=== PATIENT | female | born 1955 | race Caucasian/White ===

== ENCOUNTER 2019-07-15 07:21 | Outpatient (CLI) | payer BC, SELFPAY ==
[2019-07-15 08:03] LABS: HCT 42.6 % (36.0-46.0); Mean Corp. HGB Concentration 32.9 g/dL (32.0-36.0); Mean Corpuscular Hemoglobin 31.5 pg (27.0-33.0); Mean Corpuscular Volume 95.9 fL (80-95); Mean Platelet Volume 10.3 fL (8.0-11.0); Platelet Count 257 x1000/uL (130-400); RBC 4.44 m/cumm (4.00-5.20)
[2019-07-15 09:16] LABS: ALT 43 U/L (14-59); AST 22 U/L (15-37); Albumin 3.9 g/dL (3.4-5.0); Alkaline Phosphatase 80 U/L (46-116); Anion Gap 6.7 mmol/L (3-11); BUN 16 mg/dL (7-18); CO2 31.3 mmol/L (21.0-32.0); CREATININE 0.61 mg/dL (0.55-1.02); Calcium 9.4 mg/dL (8.5-10.1); Calculated LDL 114 mg/dL; Chloride 105 mmol/L (98-107); Cholesterol 199 mg/dL (50-200); Glucose 110 mg/dL (70-100); HDL Cholesterol 75 mg/dL (40-60); Potassium 4.3 mmol/L (3.5-5.1); Sodium 143 mmol/L (136-145); Total Protein 7.3 g/dL (6.4-8.2); Triglyceride 51 mg/dL (30-150)
[2019-07-15 09:31] LABS: Bilirubin, Total 0.8 mg/dL (0.2-1.0)
== END 2019-07-15 07:41 ==
PROVIDERS: PCP Family Medicine; Visit Provider Family Medicine
DX: Z00.00 Encounter for general adult medical examination without abnormal findings (principal); Z13.220 Encounter for screening for lipoid disorders; E66.9 Obesity, unspecified
CPT/HCPCS: 36415; 80053; 80061; 85027

== ENCOUNTER 2020-06-14 08:46 | Outpatient (REF) | payer BC, SELFPAY ==
[2020-06-14 20:59] LABS: HCT 40.6 % (36.0-46.0); HGB 13.4 g/dL (11.2-15.7); MCH 31.3 pg (27.0-33.0); MCV 94.9 fL (80-95); MPV 11.1 fL (8.0-11.0); Platelet Count 243 10^3/uL (130-400); RBC 4.28 10^6/uL (3.93-5.22); RDW-SD 41.8 fL; WBC 5.28 10^3/uL (4.4-10.8)
[2020-06-14 21:09] LABS: ALT 60 U/L (14-59); AST 31 U/L (15-37); Albumin 4.1 g/dL (3.4-5.0); Alkaline Phosphatase 81 U/L (46-116); Anion Gap 3.6 mmol/L (3-11); BUN 15 mg/dL (7-18); Bilirubin, Total 0.9 mg/dL (0.2-1.0); CO2 31.4 mmol/L (21.0-32.0); CREATININE 0.54 mg/dL (0.55-1.02); Calcium 9.2 mg/dL (8.5-10.1); Calculated LDL 118 mg/dL (<100); Chloride 107 mmol/L (98-107); Cholesterol 208 mg/dL (<200); Glucose 109 mg/dL (74-106); HDL Cholesterol 82 mg/dL (40-60); Potassium 4.8 mmol/L (3.5-5.1); Sodium 142 mmol/L (136-145); Triglyceride 43 mg/dL (<150)
== END 2020-06-14 09:06 ==
LOC: NCHCN 08:46
PROVIDERS: PCP Family Medicine; Visit Provider Family Medicine
DX: Z00.00 Encounter for general adult medical examination without abnormal findings (principal); E66.9 Obesity, unspecified; Z13.220 Encounter for screening for lipoid disorders
CPT/HCPCS: 80053; 80061; 85027

== ENCOUNTER 2021-07-04 16:40 | Outpatient (REF) | payer BC, SELFPAY ==
--- NOTE | 2021-07-04 16:20 | PAPFT_PTH ---
PATIENT: Saray Lan LOC: [facility]#:[id number] AGE/SX: 66/F ROOM: RE07/04/[address]: Chanelle Rocha : 1955 BED: DIS: 07/04/2021 SPEC #: [id number] RECD: 07/05/21 12:35 STATUS: CASSIDY REZacarias #: [id number] SADIE: 07/04/21 16:[address]: Chanelle Rocha DEPT: [facility] Cytology RECD BY: Amara Turner Tissues: 1 - CX/ENDOCX FOR PAP SMEARS Procedures: PAP THIN PREP/[facility] Screening Comments: [id number]
== END 2021-07-04 16:41 | disposition home or self-care (01) ==
LOC: NCHCN 16:40
PROVIDERS: PCP Family Medicine; Visit Provider Family Medicine
DX: Z12.4 Encounter for screening for malignant neoplasm of cervix (principal); Z01.419 Encounter for gynecological examination (general) (routine) without abnormal findings
CPT/HCPCS: 88142

== ENCOUNTER 2022-05-06 16:56 | Outpatient (REF) | payer BC, SELFPAY | END 2022-05-06 16:57 | disposition home or self-care (01) | LOC: NCHCN 16:56 | PROVIDERS: PCP Family Medicine; Visit Provider Family Medicine | DX: R82.998 Other abnormal findings in urine (principal) | CPT/HCPCS: 87077; 87086; 87186 ==

== ENCOUNTER 2023-06-25 14:10 | Outpatient (REF) | payer BC, SELFPAY ==
[2023-06-25 17:36] LABS: ALT 35 U/L (14-59); AST 19 U/L (15-37); Albumin 3.9 g/dL (3.4-5.0); Alkaline Phosphatase 89 U/L (46-116); Anion Gap 5.7 mmol/L (3-11); BUN 18 mg/dL (7-18); Bilirubin, Total 0.8 mg/dL (0.2-1.0); CO2 29.3 mmol/L (21.0-32.0); CREATININE 0.6 mg/dL (0.55-1.02); Calcium 9.6 mg/dL (8.5-10.1); Calculated LDL 117 mg/dL (<100); Chloride 106 mmol/L (98-107); Cholesterol 210 mg/dL (<200); Estimated GFR 98.93 (mL/min/1.73m2); Glucose 121 mg/dL (74-106); HDL Cholesterol 84 mg/dL (40-60); Potassium 4.7 mmol/L (3.5-5.1); Sodium 141 mmol/L (136-145); Total Protein 7.1 g/dL (6.4-8.2); Triglyceride 46 mg/dL (<150)
== END 2023-06-25 14:11 | disposition home or self-care (01) ==
LOC: NCHCN 14:10
PROVIDERS: PCP Family Medicine; Visit Provider Family Medicine
DX: Z00.00 Encounter for general adult medical examination without abnormal findings (principal); R73.03 Prediabetes; E78.89 Other lipoprotein metabolism disorders
CPT/HCPCS: 80053; 80061

== ENCOUNTER 2023-12-22 19:21 | Outpatient (REF) | payer BC, SELFPAY ==
[2023-12-22 21:07] LABS: Hemoglobin A1C 5.9 % (<5.7)
== END 2023-12-22 19:22 | disposition home or self-care (01) ==
LOC: NCHCN 19:21
PROVIDERS: PCP Family Medicine; Visit Provider Family Medicine
DX: R73.03 Prediabetes (principal)
CPT/HCPCS: 83036

== ENCOUNTER 2024-07-14 15:21 | Outpatient (REF) | payer MEDICARE, SELFPAY ==
--- NOTE | 2024-07-14 09:40 | PAPFT_PTH ---
PATIENT: Saray Lan LOC: [facility] U#:[id number] AGE/SX: 69/F ROOM: RE07/14/[address]: Yessi Perry : 1955 BED: DIS: 07/14/2024 SPEC #: [id number] RECD: 07/14/24 17:50 STATUS: CASSIDY REZacarias #: [id number] SADIE: 07/14/24 09:[address]: Yessi Perry DEPT: COUNTS INCLUDE 234 BEDS AT THE [facility] Cytology RECD BY: Shivani Lopez ENTERED: 07/14/24 17:53 SP TYPE: PAPFT OTHR DR: Chanelle Rocha Tissues: 1 - CX/ENDOCX FOR PAP SMEARS Procedures: PAP THIN PREP/[facility] Screening HPV DNA PROBE Comments: [id number] (HPV 16 & 18/45)
== END 2024-07-14 15:22 | disposition home or self-care (01) ==
LOC: NCHCN 15:21
PROVIDERS: PCP Family Medicine; Visit Provider Family Medicine
DX: Z11.51 Encounter for screening for human papillomavirus (HPV) (principal); Z01.419 Encounter for gynecological examination (general) (routine) without abnormal findings; R87.610 Atypical squamous cells of undetermined significance on cytologic smear of cervix (ASC-US)
CPT/HCPCS: 88142; 87624

== ENCOUNTER 2024-10-04 16:12 | Outpatient (REF) | payer MEDICARE, SELFPAY ==
--- NOTE | 2024-10-04 09:45 | SKI_PTH ---
PATIENT: Saray Lan LOC: [facility] U#:[id number] AGE/SX: 69/F ROOM: RE10/04/[address]: Yessi Perry : 1955 BED: DIS: 10/04/2024 SPEC #: [id number] RECD: 10/04/24 17:07 STATUS: CASSIDY REZacarias #: [id number] SADIE: 10/04/24 09:[address]: Yessi Perry DEPT: Surgical Specimen RECD BY: Shivani Lopez ENTERED: 10/04/24 17:08 SP TYPE: KENYA HENNESSY DR: Chanelle Rocha Tissues: 1 - SKIN BIOPSY(SHAVE/PUNCH) Procedures: SKIN LEVEL 4 Comments: [id number]
== END 2024-10-04 16:13 | disposition home or self-care (01) ==
LOC: NCHCN 16:12
PROVIDERS: PCP Family Medicine; Visit Provider Family Medicine
DX: D22.5 Melanocytic nevi of trunk (principal)
CPT/HCPCS: 88305

== ENCOUNTER 2024-11-16 10:55 | Emergency (ER) | payer MEDICARE, SELFPAY ==
[2024-11-16 11:03] VITALS: BP 125/75; PULSE 56; RESP 14; TEMP 36.6; O2SAT 95
--- NOTE | 2024-11-16 11:15 | DI.CT_ITS ---
Exam(s) CT HEAD CERVICAL SPINE WO EXAM: CT HEAD CERVICAL SPINE WO CLINICAL HISTORY: head injury, fell while snowshoeing. TECHNIQUE: Imaging Protocol: Axial computed tomography images with coronal and sagittal reformatted images were created and reviewed COMPARISON: No exams were available for comparison FINDINGS: Head CT Ventricles and Extra axial spaces: Normal in size and morphology for the patient's age. Hemorrhage: None. Cerebral parenchyma: No evidence of mass or acute infarct. Midline shift: None. Brainstem/Cerebellum: Normal. Calvarium: Normal. Visualized Paranasal sinuses/Mastoids: Clear. Soft tissues: Unremarkable. Cervical Spine CT BONES: Vertebral body heights are maintained. Alignment is normal. There is no evidence of acute frac ture. Degenerative disc changes and facet degenerative changes are seen . SOFT TISSUES: No paraspinal hematoma. The airway appears intact. No pneumothorax is seen at the lung apices. Thyroid is noted to be enlarged. No focal nodules are visible. IMPRESSION: Head CT: No acute abnormality. C-spine CT: Degenerative changes, no acute abnormality. Enlarged thyroid. RADIATION DOSE DELIVERED: 1,149.69mGy.cm Total DLP DATA REPOSITORY: All CT scans at this facility are submitted to the National Radiology Data Registry (NRDR) Dose Index Registry (DIR) with the [employer] (ACR). RADIATION OPTIMIZATION: All CT scans at this facility use at least one of these dose optimization te chniques: automated exposure control; mA and/or kV adjustment per patient size (includes targeted exa ms where dose is matched to clinical indication); or iterative reconstruction.
--- NOTE | 2024-11-16 11:15 | DI.RAD_ITS ---
Exam(s) XR WRIST RT COMPLETE EXAM: XR WRIST RT COMPLETE CLINICAL HISTORY: R wrist pain s/p fall w/deformity. TECHNIQUE: 2D digital imaging was performed. Three views. COMPARISON: No exams were available for comparison FINDINGS: BONES: Comminuted intra-articular fracture of the distal radius. There is dorsal displacement is wel l as impaction of fracture fragments. The ulnar styloid is also fractured. Carpal bones appear inta ct. No bony destructive lesion is seen. JOINTS: The carpal bones are normally aligned. SOFT TISSUE: Normal. IMPRESSION: Comminuted intra-articular fracture of the distal radius. Ulnar styloid fracture DATA REPOSITORY: RADIATION DOSE DELIVERED:
--- NOTE | 2024-11-16 11:28 | ED.GENADUL_ITS ---
Discharge Plan Disposition Patient Disposition: Home Discharge Details Clinical Impression: Fracture of right wrist Primary Care Provider: Chanelle Rocha ED Provider: Shanice Mccauley Home Meds and New Rx's Prescriptions: No Action hydrocortisone 2.5 % cream with perineal applicator 1 applic topical QHS Patient Comments: APPLY A SMALL AMOUNT EVERY NIGHT NEEDED Discharge Instructions Additional Instructions: You have an appointment with orthopedics on November 24 at 1:45 PM. They will discuss with you scheduling surgery if appropriate. Please keep your splint clean and dry. I recommend that you cover with a kitchen size garbage bag, then with 3 layers of waterproof medical tape around the opening to prevent water from entering. (you should still avoid getting it wet). Use sling when you are up and about. Elevate above heart level, use Tylenol 650 mg every 6 hours for discomfort. Use this [id number]. Apply ice for 15 to 20 minutes at a time to the outside of your splint to help with swelling and pain. Return to emergency care if you develop new numbness, coolness, color change to your fingers, severe pain to your wrist, arm, or hand, or if you are very worried and need to be rechecked again immediately Referrals: [facility] [Provider Group] HPI General Date/Time Provider Initiated Documentation: 11/16/24 11:09 . HPI Narrative: Saray is a 69 year old female who presents to the emergency department today for evaluation of right wrist pain. She reports that she lost her balance while snowshoeing, falling with her right hand outstretched onto her driveway. She thinks she may have hit her head at that time; has had no loss of consciousness, headache, dizziness, nausea/vomiting, or neck pain. She did feel some left chest wall discomfort like a muscle pain immediately afterward, this has since resolved; no shortness of breath or chest pain. When she got inside she did feel faint, lowered herself onto the ground. Not on anticoagulation. She is right-handed. Past medical history is significant for [] Physical exam remarkable for right wrist deformity. Generalized tenderness to right wrist. Distal pulses intact. 2-second cap refill. Able to wiggle f ingers slightly. No overlying abrasion/laceration/skin tears. No pain with palpation of fingers, elbow, or shoulder. Easy work of breathing, lung sounds clear bilaterally. No ecchymosis, lesions, or chest wall tenderness. Normal heart sounds. No C-spine tenderness with palpation, painless range of motion of neck. Cranial nerves II through XII intact as tested. No raccoon eyes or Genao sign. D/dx includes but is not limited to: Fracture, sprain intracranial hemorrhage, vertebral fracture I independently interpreted the following tests: R wrist xray, comminuted intraarticular distal radial fracture. This was confirmed by radiologist. Head and C-spine CT both reassuring, no acute abnormality. While in the emergency department, Saray received Tylenol for discomfort. A sugar-tong splint applied to right forearm after consultation with JONNY Caro in orthopedics; she tolerated this well. Patient is likely candidate for surgery, recommends follow-up on November 24 for reassessment. He does request a CT for further evaluation prior to Ortho follow-up; this was performed already admitted prior to discharge. Reviewed discharge instructions with patient, including symptomatic management, splint care, and red flags indicating need for return to emergency care Related Data Home Medications ?Medication ?Instructions ?Recorded ?Confirmed hydrocortisone 2.5 % topical cream 1 applic topical QHS 11/16/24 11/16/24 with perineal applicator Allergies Allergy/AdvReac Type Severity Reaction Status Date / Time amoxicillin AdvReac Mild Skin Rash Unverified 11/16/24 11:09 cephradine (From [facility]ose[facility]) AdvReac Mild Skin Rash Unverified 11/16/24 11:09 General Stated Complaint: Orthopedic ENMANUEL: 3 Review of Systems Narrative: See HPI Exam Const General: cooperative, healthy appearing, comfortable, no acute distress and well developed Nutritional Appearance: average body habitus Orientation: alert and oriented x3 [facility] Head: normal to inspection, no palpable skull fracture, normocephalic and atraumatic Ears: hearing grossly normal bilaterally General nose exam: external nose normal Face and sinus: normal facial exam Mouth: oral mucosae normal Neck Neck: normal visual inspection and full ROM Chest Chest: normal inspection of the chest and normal palpation of entire chest wall Resp Effort & Inspection: normal respiratory effort and able to speak in complete sentences Auscultation: clear to auscultation bilaterally Cardio Rate: regular rate Rhythm: regular rhythm Neuro General: patient alert, patient oriented x3, tone normal, moves all extremities and no focal motor deficits Cranial Nerves: CN's II-XI intact bilaterally, PERRL, EOM intact bilaterally, no nystagmus and facial strength normal Cognition: normal cognition Motor: muscle tone normal throughout Sensory Exam: no sensory deficits noted Extrem Right upper extremity: wrist Details: tenderness, warmth, deformity (distal radius), radial pulse present and ulnar pulse present; no abrasions, no lacerations, no ecchymosis, no foreign body and no penetrating wound Course Vital Signs Vital signs: Vital Signs Temperature 36.6 C 11/16/24 11:03 Pulse 56 L 11/16/24 11:03 Respiratory Rate 14 11/16/24 11:03 Blood Pressure 125/75 11/16/24 11:03 Pulse Oximetry 95 11/16/24 11:03 Temperature 36.6 C 11/16/24 11:03 Temperature Source Oral 11/16/24 11:03 Pulse 56 L 11/16/24 11:03 Respiratory Rate 14 11/16/24 11:03 Respiratory Effort Normal, Non-Labored 11/16/24 11:23 Respiratory Depth Normal 11/16/24 11:23 Respiratory Pattern Normal 11/16/24 11:23 Blood Pressure 125/75 11/16/24 11:03 Blood Pressure Position Sitting 11/16/24 11:03 Pulse Oximetry 95 11/16/24 11:03 Oxygen Delivery Method Room Air 11/16/24 11:03 Oxygen Flow Rate 0 11/16/24 11:03 Pain Level 7 11/16/24 11:21 Medical Decision Making Imaging Data Radiologic Study: Radiologist's impression: Exam(s) CT HEAD CERVICAL SPINE WO EXAM: CT HEAD CERVICAL SPINE WO CLINICAL HISTORY: head injury, fell while snowshoeing. TECHNIQUE: Imaging Protocol: Axial computed tomography images with coronal and sagittal reformatted images were created and reviewed COMPARISON: No exams were available for comparison FINDINGS: Head CT Ventricles and Extra axial spaces: Normal in size and morphology for the patient's age. Hemorrhage: None. Cerebral parenchyma: No evidence of mass or acute infarct. Midline shift: None. Brainstem/Cerebellum: Normal. Calvarium: Normal. Visualized Paranasal sinuses/Mastoids: Clear. Soft tissues: Unremarkable. Cervical Spine CT BONES: Vertebral body heights are maintained. Alignment is normal. There is no evidence of acute fracture. Degenerative disc changes and facet degenerative changes are seen . SOFT TISSUES: No paraspinal hematoma. The airway appears intact. No pneumothorax is seen at the lung apices. Thyroid is noted to be enlarged. No focal nodules are visible. IMPRESSION: Head CT: No acute abnormality. C-spine CT: Degenerative changes, no acute abnormality. Enlarged thyroid. Radiologic Study #2: Radiologist's impression: Exam(s) XR WRIST RT COMPLETE EXAM: XR WRIST RT COMPLETE CLINICAL HISTORY: R wrist pain s/p fall w/deformity. TECHNIQUE: 2D digital imaging was performed. Three views. COMPARISON: No exams were available for comparison FINDINGS: BONES: Comminuted intra-articular fracture of the distal radius. There is dorsal displacement is well as impaction of fracture fragments. The ulnar styloid is also fractured. Carpal bones appear intact. No bony destructive lesion is seen. JOINTS: The carpal bones are normally aligned. SOFT TISSUE: Normal. IMPRESSION: Comminuted intra-articular fracture of the distal radius. Ulnar styloid fracture Quality:SDOH Health Related Social Needs: No Data to Display PFSH All Active Problems (Updated 11/16/24 @ 14:10 by Shanice Feng) Fracture of right wrist (Acute) Social History Smoking/Tobacco Use Status: Never Smoking risk assessment performed?: Yes Alcohol Intake: current Alcohol Intake frequency: a few times a week Drug use: Never Substance use type: does not use Do you feel safe at home: Yes Do you feel safe in your relationship?: Yes PAWSS Have you Been Recently Intoxicated or Drunk Within the Last 30 days?: No Have you Ever Experienced Previous Episodes of Alcohol Withdrawal?: No Have you ever Experienced Withdrawal Seizures?: No Have you ever Experienced Delirium Tremens(DT)s?: No Have you ever undergone Alcohol Rehabilitation Treatment (i.e, inpt ot outpatient treatment programs)?: No Have you ever Experienced Blackouts?: No Have you ever Combined Alcohol with other Downers within the last 90 days?: No Have you ever Combined Alcohol with any other Substance of Abuse during the last 90 days?: No Positive Blood Alcohol level on Presentation? [PCS.BAL]: No Evidence of Increased Autonomic Activity (i.e. HR>120, tremor, sweating, agitation, nausea)?: No Result: 0
[2024-11-16] MEDS: Acetaminophen 325 MG TAB 650 MG PO (11:36)
[2024-11-16 11:49] VITALS: BP 130/64; PULSE 57; O2SAT 97
[2024-11-16 13:23] VITALS: BP 151/75; PULSE 63; RESP 18; O2SAT 97
--- NOTE | 2024-11-16 13:30 | DI.CT_ITS ---
Exam(s) CT UPPER EXTREMITY RT WO EXAM: CT UPPER EXTREMITY RT WO CLINICAL HISTORY: Evaluation of intra-articular radius fracture TECHNIQUE: Imaging Protocol: Axial computed tomography images with coronal and sagittal reformatted images were created and reviewed. CONTRAST MATERIAL: Noncontrast- COMPARISON: CR XR WRIST RT COMPLETE from 11/16/2024 FINDINGS: Bones: There is a there is a comminuted intra-articular fracture of the distal radius. There is impa ction and some anterior and posterior displacement of fracture fragments but no significant angulatio n. There is separation at the articular surface of 5 millimeters. The fracture lines extend from th e radial styloid to the medial aspect of the distal radius. The ulnar styloid is fractured and mildl y comminuted and displaced. There is additional small fracture fragment seen at the posterior aspect of the triquetrum. The carpal bones are normally aligned. No cellulitic or osteomyelitic changes are identified. There is no evidence of joint space narrowing or cystic degeneration seen. No lytic or sclerotic lesions are identified. Soft Tissues: A splint is in place. Soft tissue swelling is present at the level of the wrist. IMPRESSION: Comminuted intra-articular fracture of the distal radius with impaction. Ulnar styloid fracture. Sm all fracture fragment at the posterior aspect of the triquetrum. RADIATION DOSE DELIVERED: 65.65mGy.cm Total DLP DATA REPOSITORY: All CT scans at this facility are submitted to the National Radiology Data Registry (NRDR) Dose Index Registry (DIR) with the [employer] (ACR). RADIATION OPTIMIZATION: All CT scans at this facility use at least one of these dose optimization te chniques: automated exposure control; mA and/or kV adjustment per patient size (includes targeted exa ms where dose is matched to clinical indication); or iterative reconstruction.
== END 2024-11-16 14:39 | disposition home or self-care (01) ==
PROVIDERS: Emergency Provider Nurse Practitioner Family; PCP Family Medicine
DX: S52.571A Other intraarticular fracture of lower end of right radius, initial encounter for closed fracture (principal); S52.611A Displaced fracture of right ulna styloid process, initial encounter for closed fracture; W00.0XXA Fall on same level due to ice and snow, initial encounter; Y92.39 Other specified sports and athletic area as the place of occurrence of the external cause; Y92.014 Private driveway to single-family (private) house as the place of occurrence of the external cause
CPT/HCPCS: 29125; 99284; 70450; 72125; 73110; 73200

== ENCOUNTER 2025-07-18 13:37 | Outpatient (REF) | payer MEDICARE, SELFPAY ==
[2025-07-18 14:57] LABS: Hemoglobin A1C 5.8 % (<5.7)
[2025-07-18 15:20] LABS: Anion Gap 6.6 mmol/L (3-11); BUN 14 mg/dL (7-18); CO2 30.4 mmol/L (21.0-32.0); Calcium 9.3 mg/dL (8.5-10.1); Calculated LDL 109 mg/dL (<100); Chloride 104 mmol/L (98-107); Cholesterol 209 mg/dL (<200); Estimated GFR 102.10 (mL/min/1.73m2); Glucose 97 mg/dL (74-106); HDL Cholesterol 83 mg/dL (>or=50); Potassium 4.3 mmol/L (3.5-5.1); Sodium 141 mmol/L (136-145); Triglyceride 86 mg/dL (<150); Vitamin D 25 Total 19 ng/mL (30-100)
[2025-07-19 11:01] LABS: Hepatitis C Ab w Rflx HCV PCR Negative (Negative)
== END 2025-07-18 13:38 | disposition home or self-care (01) ==
LOC: NCHCN 13:37
PROVIDERS: PCP Family Medicine; Visit Provider Family Medicine
DX: Z13.220 Encounter for screening for lipoid disorders (principal); Z11.59 Encounter for screening for other viral diseases; R73.03 Prediabetes; M85.80 Other specified disorders of bone density and structure, unspecified site; Z78.0 Asymptomatic menopausal state
CPT/HCPCS: 80048; 80061; 82306; 86803; 83036